=== PATIENT | male | born 1935 | race Caucasian/White ===

== ENCOUNTER 2017-10-06 05:42 | Inpatient (IN) | payer MEDICARE ==
[2017-10-06] VITALS (11 sets, daily range): BP systolic 114–170; BP diastolic 60–84
[~2017-10-06] VITALS: Ht 172.7 cm; Wt 72.4 kg
[~2017-10-06 05:42] MED LIST: KEFLEX500 M1 PO; LISINOPRIL10 MG PO; LORTAB 5/3255 MG PO; SIMVASTATIN20 MG PO; TRAMADOL HCL50 MG PO
--- NOTE | 2017-10-06 05:52 | NUR ---
PT IMMEDIATELY TO RM 13. AMBULATED W/ STEADY GAIT.
--- NOTE | 2017-10-06 05:53 | NUR ---
PT. AMBULATED TO ROOM WITH C/O CONSTIPATION AND NOT HAVING A BM SINCE MONDAY. ABD. LARGE AND DISTENDED WITH DISTANT HYPOACTIVE BOWEL SOUNDS. PT. C/O ABD. PAIN A 6 ON A SCALE OF 1-10.
[2017-10-06 06:33] LABS: HEMATOCRIT 48.2 % (39.0-50.0); HEMOGLOBIN 17.2 g/dl (14.0-18.0); IMMATURE GRANULOCYTES 0.3 % (0.0-1.0); MEAN CORPUSCULAR HGB 32.8 pG CALC (26.0-32.0); MEAN CORPUSCULAR HGB CONC 35.7 g/L CALC (32.0-36.0); NEUT# 7.5 thou/uL (1.82-7.42); RED BLOOD COUNT 5.24 mill/uL (4.70-6.10); RED CELL DISTRI WIDTH 11.8 % (11.5-15.5)
[2017-10-06 06:40] LABS: ALBUMIN 4.8 g/dL (3.2-5.0); ALKALINE PHOSPHATASE 90 u/l (38-126); AMYLASE 78 u/l (30-110); ANION GAP 20 (6-22 (CALC)); BILIRUBIN, TOTAL 1.6 mg/dL (0.0-1.4); BUN 18 mg/dL (8-23); BUN/CREATININE RATIO 19 (12-20 (CALC)); CALCIUM 10.7 mg/dL (8.4-10.2); CARBON DIOXIDE 25 mmol/l (22-30); CHLORIDE 99 mmol/l (95-108); CREATININE 0.9 mg/dL (0.7-1.3); GFR > 60 ML/MIN (>=60 (CALC)); GFR FOR AFR.AMER. > 60 ML/MIN (>=60 (CALC)); GLUCOSE 143 mg/dL (82-115); LIPASE 96 u/l (23-300); POTASSIUM 4.4 mmol/l (3.5-5.1); SGOT/AST 25 u/l (19-48); SGPT/ALT 41 u/l (11-66); SODIUM 139 mmol/l (137-146); TOTAL PROTEIN 7.6 g/dL (6.3-8.2)
--- NOTE | 2017-10-06 06:41 | NUR ---
IVF, IV ANTIEMETIC AND IV ABT. GIVEN PER MD ORDER.
--- NOTE | 2017-10-06 06:45 | NUR ---
IV PAIN MED GIVEN PER MD ORDER.
--- NOTE | 2017-10-06 06:54 | NUR ---
REPORT GIVEN TO FABI GRAHAM.
--- NOTE | 2017-10-06 07:00 | NUR ---
IN TO INTRODUCE SELF TO PATIENT. INFORMED OF NG TUBE PLACEMENT PER MD ORDER. VERBAL UNDERSTANDING FROM PATIENT. CALL LIGHT SAMUEL PINO.
--- NOTE | 2017-10-06 07:35 | NUR ---
NG TUBE PLACED IN RIGHT NARE, X-RAY AT BEDSIDE FOR PORTABLE X-RAY. PATIENT SHOWS NO SIGNS OF RESP DISTRESS.
--- NOTE | 2017-10-06 07:43 | NUR ---
REPORT CALLED TO ROSLYN VELA.
--- NOTE | 2017-10-06 08:00 | NUR ---
PT ON FLOOR WITH ER NURSE MATT. PT ORIENTED TO ROOM AND CALL LIGHT. SAFETY PRECAUTIONS IN PLACE. CALL LIGHT WITHIN REACH. WILL CONTINUE TO MONITOR.
--- NOTE | 2017-10-06 08:10 | NUR ---
PATIENT TRANSPORTED TO MED SURG VIA STRETCHER, NG TUBE CLAMPED FROM SUCTION FOR TRANSPORT. PATIENT IN STABLE CONDITION, TRANSPORTED BY [facility], CARE RELINQUISHED TO ROSLYN VELA.
--- NOTE | 2017-10-06 14:39 | NUR ---
PT OFF FLOOR WITH STAFF VIA WHEELCHAIR FOR CT.
--- NOTE | 2017-10-06 14:59 | NUR ---
PT BACK ON FLOOR WITH STAFF VIA WHEELCHAIR. PT RESTING IN BED. CALL LIGHT WITHIN REACH.
--- NOTE | 2017-10-06 21:40 | NUR ---
PT FROM OR TO ICU BED2, ARRIVED ON STABLE CONDITION, ON STRETCHER ACCOMPANIED BY GLADYS JANE. BED SIDE REPORT RECEIVED. PT ABLE TO SCOOT OVER FROM STRETCHER TO BED WITH MINIMUM ASSISTANCE, ALERT AND ORIENTED X3, APPEARS DROWSY, C/O PAIN IN ABDOMEN AT 7/10, DENIES N/V, HAS NG TUBE TO RIGHT NARE, CONNECTED TO LIS, SOME TEA COLORED DRAINAGED NOTED, VERIFIED PLACEMENT BY AUSCULTATION, LEMUS IN PLACE DRAINING BY GRAVITY, EMPTIED 50 ML OF CLEAR YELLOW URINE AT THIS TIME, LEG STRAP IN PLACE SECURING LEMUS CATH. SLEEVES FOR SCD'S TO BLE, WILL PLACE SCD'S MACHINE, DID NOT HAVE O2 UPON ARRIVAL, O2SATS 88% ON MONITOR, PLACE O2 AT 2LPM UPON ARRIVAL, HAS A 20G LEFT HAND WITH LR INFUSING AT 200ML/HR AND TYLENOL DRIP. APPEARS HEALTHY FREE OF SIGNS OF INFILTRATION, VSS, AFEBRILE, HAS A BINDER SUPPORTING ABDOMEN, APPEAR CDI, SKIN IS WARM/DRY, ACYANOTIC, APPEARS PALE, LUNGS ARE CLEAR ON AUSCULTATION, ABSENT BOWEL SOUNDS, PT DENIES PASSING FLATUS AT THIS TIME, AT BEDSIDE, WILL FOLLOW UP WITH ASSESSMENT AND MEDICATE PER ORDERS.
--- NOTE | 2017-10-06 22:30 | NUR ---
PT RESTING IN BED WITH EYES CLOSED, AROUSES TO VERBAL STIMULI, LEAVING, VSS, AFEBRILE, WILL CONTINUE TO MONITOR.
[2017-10-07] VITALS (21 sets, daily range): BP systolic 112–151; BP diastolic 57–88
--- NOTE | 2017-10-07 00:15 | NUR ---
PIPERACILLIN INFUSING AT THIS TIME, PT DENIES NEED FOR PAIN MEDICATION, DENIES N/V, RESP ARE EVEN AND UNLABORED, VSS, MONITOR SHOWS SR TO ST, HR 59-60, PROVIDED A SWAB TO MOIST MOUTH, NG TUBE DRAINING SMALL AMOUNTS OF JEAN COLORED STOMACH CONTENTS, 200ML ON CANISTER AT THIS TIME, LEMUS DRAINING BY GRAVITY SMALL AMOUNTS OF CLEAR YELLOW URINE, SCD'S REMAIN IN PLACE. ENCOURAGED TO CALL IF NEEDED. VOICES UNDERSTANDING. CALL MORSE AT REACH.
--- NOTE | 2017-10-07 02:18 | NUR ---
MEDICATED PT WITH ZOFRAN AND MORPHINE IV FOR ABD PAIN, RATES IT AT 10/10, GUARDING, FACIAL GRIMACE, AND MOANING NOTED, RESP SLIGHTLY LABORED, INSTRUCTED PT ON BREATHING TECH, PT FOLLOW COMMANDS, AFEBRILE, VSS, SR ON MONITOR, HR 66, BP 145/72, SPO2 98%, PROVIDED ONE WET SWAB TO MOIST MOUTH, EDUCATED ABOUT SPLINTING TECHNIQUES WHEN DEEP BREATHING EXERCISES. ENCOURAGED TO CALL IF NEEDED.
--- NOTE | 2017-10-07 02:55 | NUR ---
PT STATES PAIN IS AT 3/10, NO DISTRESS NOTED NOR GUARDING, CALL MORSE AT REACH.
--- NOTE | 2017-10-07 03:00 | NUR ---
TITRATED DOPAMINE TO 7MCG, BP 83/66, HR 100-114.
--- NOTE | 2017-10-07 03:01 | NUR ---
PT AWAKE, ISP AT BEDSIDE, INSTRUCTED ON HOW TO USE IT AND RATIONALE OF USING IT, PT DEMOSTRATED BACK, NOT ABLE TO HOLD BREATH, STATES "BELLY HURTS"
--- NOTE | 2017-10-07 03:49 | NUR ---
C/O SHARP PAIN IN ABD, STATES "I CAN'T MOVE." PREVIOUSLY MEDICATED WITH MORPHINE AT 0200, RATES PAIN AT 07/06, WILL NOTIFY MD OF PT PAIN. PT DENIES PASSING FLATUS.
--- NOTE | 2017-10-07 04:00 | NUR ---
ANSWERED PT CALL LIGHT, C/O SHARP ABD PAIN, MOANING, GUARDING, FACIAL GRIMACE NOTED, NOTIFIED DR CANDELARIA, MEDICATED WITH MORPHINE IV AT 0200.
--- NOTE | 2017-10-07 04:35 | NUR ---
BABY STROLLER RENTAL CLERK IN PT ROOM DRAWING BLOOD SAMPLES.
[2017-10-07 04:53] LABS: HEMATOCRIT 41.8 % (39.0-50.0); HEMOGLOBIN 14.3 g/dl (14.0-18.0); IMMATURE GRANULOCYTES 0.4 % (0.0-1.0); MEAN CELL VOLUME 96.3 fL CALC (80.0-100.0); MEAN CORPUSCULAR HGB 32.9 pG CALC (26.0-32.0); MEAN CORPUSCULAR HGB CONC 34.2 g/L CALC (32.0-36.0); NEUT# 8.12 thou/uL (1.82-7.42); RED BLOOD COUNT 4.34 mill/uL (4.70-6.10); RED CELL DISTRI WIDTH 11.9 % (11.5-15.5)
[2017-10-07 05:06] LABS: ALKALINE PHOSPHATASE 54 u/l (38-126); ANION GAP 13 (6-22 (CALC)); BILIRUBIN, TOTAL 1.2 mg/dL (0.0-1.4); BUN 18 mg/dL (8-23); BUN/CREATININE RATIO 19 (12-20 (CALC)); CARBON DIOXIDE 27 mmol/l (22-30); CHLORIDE 105 mmol/l (95-108); CREATININE 0.9 mg/dL (0.7-1.3); GFR > 60 ML/MIN (>=60 (CALC)); GFR FOR AFR.AMER. > 60 ML/MIN (>=60 (CALC)); GLUCOSE 126 mg/dL (82-115); POTASSIUM 4.6 mmol/l (3.5-5.1); SGOT/AST 22 u/l (19-48); SGPT/ALT 28 u/l (11-66); SODIUM 141 mmol/l (137-146); TOTAL PROTEIN 5.4 g/dL (6.3-8.2)
[2017-10-07 05:09] LABS: CALCIUM 8.4 mg/dL (8.4-10.2)
--- NOTE | 2017-10-07 05:13 | NUR ---
MEDICATED WITH MORPHINE IV FOR ACHING ABD PAIN AT 10/10. WILL CONTINUE TO REASSESS. CALL MORSE AT REACH. VSS, MOANING, GUARDING, AND FACIAL GRIMACE NOTED.
--- NOTE | 2017-10-07 06:07 | NUR ---
HUNG ZOSYN AT THIS TIME, PT STATES PAIN IS BETTER, BUT WHEN STAYING STILL, NOT WHEN MOVING, GET WORSE AT MINIMUM MOVEMENT, TOTAL URINE OUTPUT FOR SPRINKLING SYSTEM INSTALLER 400ML CLEAR YELLOW URINE, DRAINAGE ON CANISTER AT 200 ML LYNDON, TEA COLORED, SCANT AMOUNT DRAINING AT THIS TIME. PT DENIES PASSING FLATUS. SOME FACIAL GRIMACE NOTED. NO MOANING OR GUARDING AT THIS TIME.
--- NOTE | 2017-10-07 07:25 | NUR ---
PT ALERT AND ORIENTED, MOANING AND COMPLAINING OF SHARP PAIN IN ABD, AM ASSESSMENT COMPLETED SEE INTERVENTIONS, SKIN WARM AND DRY, ABD INCISION DRESSING CLEAN DRY AND INTACT WITH MINIMAL SERO/SANG DRANG NOTED, ABD BINDER IN PLACE AND SECURE, NG INTACT TO LIS, BOWEL SOUNDS ABSENT, NO S/S OF INFECTION NOTED, LUNG CLEAR O2 ON AT 2L VIA NC, NO SHORTNESS OF BREATH OR DISTRESS NOTED, INCENTIVE SPIROMETER AT BEDSIDE AND FREQUENT USE ENCOURAGED PT CRIES OUT "I CAN'T DO IT RIGHT NOW, I'M IN TO MUCH PAIN", VS STABLE PT AFEBRILE, SCD'S ON BLE, IVF INFUSING AT PRESCRIBED RATE, SAFETY MEASURES REINFORCED, EDUCATED REGARDING THE IMPORTANCE OF OOB ACTOVOTY AND AMBULATION WITH REGARDS TO POST OP HEALING AND OVERALL WELL BEING, PT VERBALIZES UNDERSTANDING AND STATES ONCE HIS PAIN IS BETTER HE KNOWS HE NEEDS TO GET OOB, WILL CONTACT MD REGARDING PAIN CONTROL. CALL MORSE WITHIN REACH
--- NOTE | 2017-10-07 08:00 | NUR ---
CONTACTED AND REGARDING PAIN CONTROL, ADVERTISING AGENCY MANAGER ORDERED, WILL INITIATE PRESCRIBED, PT EDUCATED REGARDING PROCESS AND PT STATES "THEY HAVE DONE THAT THE LAST 2 TIMES, I DON'T KNOW WHY I DIDN;T THINK TO MENTION IT" CALL MORSE WITHIN REACH, EDUCATED REGARDING ADVERTISING AGENCY MANAGER USAGE ETC...VERBALIZES UNDERSTANDING.
--- NOTE | 2017-10-07 08:35 | NUR ---
LINNEA BATH STEWARD/STEWARDESS INTIATED, PT EDUCATED REGARDING BATH STEWARD/STEWARDESS USAGE WITH RETURN DEMONSTRATION, CALL MORSE WITHIN REACH
--- NOTE | 2017-10-07 08:55 | NUR ---
RADIOLOGY AT BEDSIDE FOR PORTABLE XRAY ORDERED, PT STATES PAIN BETTER BUT WORSENS WITH MOVEMENT, EDUCATED REGARDING PAIN CONTROL VS PAIN RELIEF, REMINDED THAT PAIN WILL NTO BE GONE COMPLETELY POST OPERATIVELY BUT SHOULD BE TOLERABLE WITH SMELTER LINER, VERBALIZES UNDERSTANDING, CALL MORSE WITHIN REACH, DEMONSTRATES SMELTER LINER USAGE WILL CONTINUE TO MONTIOR.
--- NOTE | 2017-10-07 10:00 | NUR ---
NPO STATUS MAINTAINED, REPOSITIONS SELF FOR COMFORT, IS USAGE ENCOURAGED, CALL MORSE WITHIN REACH.
--- NOTE | 2017-10-07 10:25 | NUR ---
AND INTO SEE PATIENT, PLAN OF CARE DISCUSSED
--- NOTE | 2017-10-07 12:06 | NUR ---
PT RESTING IN BED, OFFERS NO NEW COMPLAINTS, CURRENTLY AT BEDSIDE, PAIN WELL CONTROLLED WITH MORPHINE NETWORKER, WILL CONTINUE TO MONITOR.
--- NOTE | 2017-10-07 12:49 | NUR ---
PT RESTING AWARE OF PLAN TO AMBULATE AT 1330 (PER HIS REQUEST), REMAINS AT BEDSIDE, TOLERATING ICE CHIPS WITHOUT INCIDENT, CALL MORSE WITHIN REACH
--- NOTE | 2017-10-07 14:00 | NUR ---
LEMUS CATHTER REMOVED INTACT, W/O INCIDENT, PT TOLERATED WELL, URINAL PLACED WITHIN REACH, AND PT EDUCATED REGARDING THE IMPORTANCE OF MEASURING FIRST POST LEMUS VOIDS, VERBALIZES UNDERSTANDING, CALL MORSE WITHIN REACH
--- NOTE | 2017-10-07 14:07 | NUR ---
PT AMBULATED AROUND NURSES STATION AND TOLERATED WELL, BACK TO [place] SITTING UP IN RECLINER, SPOUSE AT BEDSIDE, IS USAGE DEMONSTRATED, REMINDED TO USE HOURLY WPOUSE VERBALIZES SHE WILL HELP REMIND HIM.
--- NOTE | 2017-10-07 16:05 | NUR ---
TOLERATING SITTING UP IN CHAIR, REMAINS AT BEDSIDE, URINAL WITHIN REACH, NO VOID SINCE LEMUS REMOVAL EARLIER, CALL MORSE WITHIN REACH
--- NOTE | 2017-10-07 16:50 | NUR ---
PT AMBULATED AROUND NURSE STATION WITH STAND BY ASSIST, VOIDED 50 ML CELAR YELLOW URINE, ASSISTED BACK TO BED AND SCD'S BACK INPLCE, NG REMAINS TO LIS WITH MINIMAL OUTPUT NOTED THIS SHIFT, CALL MORSE WITHIN REACH, WILL CONTINUE TO MONITOR.
--- NOTE | 2017-10-07 17:20 | NUR ---
GONE AT THIS TIME, RESTING, CONTINUES TO TOLERATE MORPHINE ENTRANCE GUARD WITH GOOD RELIEF, CALL MORSE WITHIN REACH
--- NOTE | 2017-10-07 19:35 | NUR ---
BEDSIDE REPORT RECEIVED FROM GLADYS CRAIG. PT RESTING IN BED WITH HEAD ELEVATED 30 DEGREES. NG TUBE IN PLACE AT LIS. PT STATES THAT PAIN IS MANAGED WITH MORPHINE PRODUCTION UTILITY WORKER. RESPIRATIONS EVEN AND UNLABORED. ABDOMINAL DRESSING WITH MINIMAL SEROSANGUINOUS DRAININAGE AND ABDOMINAL BINDER IN PLACE. NO BOWEL SOUNDS CURRENTLY. VOIDED 175ML OF CLEAR YELLOW URINE AT THIS TIME. PLAN OF CARE DISCUSSED. PT ENCOURAGED TO VERBALIZE CONCERNS. STATED UNDERSTANDING. SAFETY MEASURES IN PLACE. CALL LIGHT SYSTEM REVIEWED AND IN REACH.
--- NOTE | 2017-10-07 21:58 | NUR ---
PT UP TO CHAIR FOR HYGEINE AND LINEN CHANGE. TOLERATED WELL. ASSISTED BACK TO BED AND SCD'S REPLACED. IV FLUIDS INFUSING WITHOUT DIFFICUTLY. NO FURTHER REQUESTS AT THIS TIME. CALL LIGHT WITHIN REACH.
[2017-10-08] VITALS (8 sets, daily range): BP systolic 125–166; BP diastolic 65–91
--- NOTE | 2017-10-08 00:03 | NUR ---
TITRATED OXYGEN TO 1L VIA NC. OXYGEN SATURATION AT 95%. PT OFFERS NO COMPLAINTS OR REQUESTS AT THIS TIME.
--- NOTE | 2017-10-08 02:09 | NUR ---
PT ASLEEP AT THIS TIME. USING URINAL AT BEDSIDE TO VOID. USING INCENTIVE SPIROMETER WHILE AWAKE. USES CALL LIGHT NEEDED.
--- NOTE | 2017-10-08 04:16 | NUR ---
PT USING CERTIFIED ACTIVITIES DIRECTOR PUMP CONSISTENTLY. REMAINS ALERT WHEN AWAKE. RESPIRATIONS EVEN AND UNLABORED. STILL NO BOWEL SOUNDS. DRESSING HAS NO ADDITIONAL DRAINAGE; STILL MINIMAL AMOUNT OF SEROSANGINOUS DRAINAGE. NG TUBE REMIANS IN PLACE TO RIGHT NARE AT LIS; NO DRAINAGE THIS SHIFT SO FAR. PT REMAINS PLEASANT WITH NO COMPLAINTS.
[2017-10-08 05:15] LABS: HEMATOCRIT 41.5 % (39.0-50.0); HEMOGLOBIN 14.1 g/dl (14.0-18.0); IMMATURE GRANULOCYTES 0.1 % (0.0-1.0); MEAN CELL VOLUME 96.7 fL CALC (80.0-100.0); MEAN CORPUSCULAR HGB 32.9 pG CALC (26.0-32.0); NEUT# 4.89 thou/uL (1.82-7.42); RED BLOOD COUNT 4.29 mill/uL (4.70-6.10); RED CELL DISTRI WIDTH 12.1 % (11.5-15.5)
[2017-10-08 05:28] LABS: ANION GAP 12 (6-22 (CALC)); BUN 9 mg/dL (8-23); BUN/CREATININE RATIO 9 (12-20 (CALC)); CALCIUM 8.3 mg/dL (8.4-10.2); CARBON DIOXIDE 28 mmol/l (22-30); CHLORIDE 102 mmol/l (95-108); CREATININE 0.9 mg/dL (0.7-1.3); GFR > 60 ML/MIN (>=60 (CALC)); GFR FOR AFR.AMER. > 60 ML/MIN (>=60 (CALC)); GLUCOSE 83 mg/dL (82-115); SODIUM 138 mmol/l (137-146)
--- NOTE | 2017-10-08 06:24 | NUR ---
PT UP TO AMBULATED AROUND UNIT. TOLERATED WELL. REMAINS AFEBRILE.
--- NOTE | 2017-10-08 08:16 | NUR ---
PT AROUSED EASILY TO VERBAL STIMULI; A/O X3; STATES PAIN 2/10; MORPHINE PROCEDURAL NURSE INFUSING WITHOUT DIFFICULTY; NG TO RT NARE WITH SCANT AMOUNT OF GREEN DRAINAGE NOTED; O2 1L VIA NC; MIDLINE ABD INCISION WITH SMALL AMOUNT OF OLD SEROUSAGINOUS DRAINAGE NOTED; ABD BINDER IN PLACE; PT VOIDS USING URINAL WITHOUT DIFFICULTY; SCD IN PLACE; PT GOOD USE OF IS AT 1500 X10; ENCOURAGE USE OF CALL LIGHT IF ANY ASSISTANCE IS NEEDED; WILL CONTINUE TO MONITOR.
--- NOTE | 2017-10-08 09:48 | NUR ---
DR. CANDELARIA IN TO SEE PT; PLAN OF CARE DISCUSSED
--- NOTE | 2017-10-08 11:16 | NUR ---
PT AMBULATORY IN THE HALLS; PT IN RECLINER WITH FEET ELEVATED; PAIN LEVEL 1/10; MORPHINE PELOTA MAKER EFFECTIVE; CALL MORSE WITHIN REACH; WILL CONTINUE TO MONITOR.
--- NOTE | 2017-10-08 13:01 | NUR ---
PT IN RECLINER; OFFERS NO COMPLAINTS AT THIS TIME; CALL MORSE WITHIN REACH; WILL CONTINUE TO MONITOR.
--- NOTE | 2017-10-08 14:05 | NUR ---
PT TO MS RROM 264 VIA WC ACCOMPANIED BY STAFF; REPORT GIVEN TO ROSLYN FARRAR
--- NOTE | 2017-10-08 14:26 | NUR ---
PT ARRIVED FROM ICU VIA WC ACCOMPANIED BY STAFF, IV SITE AND NGT IN PLACE,. CONTINUE TO OBSERVE AND MONITOR.
--- NOTE | 2017-10-08 16:00 | NUR ---
PT IS AMBULATING IN THE HOUGH WITH NO DISTRESS NOTED. IV SITE IS FREE FROM REDNESS OR EDEMA. FAMILY HAS BEEN IN THE ROOM. CONTINUE TO OBSERVE AND MONITOR
--- NOTE | 2017-10-08 19:45 | NUR ---
PT SITTING UP IN BED WATCHING TV. PT IS ALERT AND ORIENTED X3. PERRLA. RESP ARE EVEN AND UNLABORED. LUNGS ARE CLEAR. TELE IN PLACE. HR REGULAR. PULSES PALPABLE THROUGHOUT. NO EDEMA NOTED. NO BOWEL SOUNDS NOTED. MIDLINE INCISION. DRESSING C/D/I. ABDOMINAL BINDER IN PLACE. NG DRAINING GREEN BILE AT LIS. PT REPORTS THAT HE IS NOT PASSING FLATUS AT THIS TIME. SCD IN PLACE. #20 LEFT HAND WITH LR @KVO. FARMWORKER DAIRY INFUSING. NO REDNESS OR EDEMA AT IV SITE. PT REPORTS USING INCENTIVE SPRIMOTER. DENIES PAIN AT THIS TIME. WILL CONTINUE OT MONITOR
--- NOTE | 2017-10-08 22:00 | NUR ---
LENS MARKER PUMP JUAN'Valerie.
--- NOTE | 2017-10-09 | NUR ---
PT RESTING IN BED WITH EYES CLOSED. AROUSES TO VERBAL STIMULI. RESP ARE EVEN AND UNLABORED. NO CHANGE IN PT STATUS. WILL CONTINUE TO MONITOR
[2017-10-09 00:37] VITALS: BP 142/80
[2017-10-09 03:52] VITALS: BP 154/86
--- NOTE | 2017-10-09 04:44 | NUR ---
PT RESTING IN BED WITH EYES CLOSED. AROUSES TO VERBAL STIMULI. RESP ARE EVEN AND UNLABORED. WILL CONTINUE TO MONITOR
[2017-10-09 06:05] LABS: HEMATOCRIT 41.9 % (39.0-50.0); HEMOGLOBIN 14.2 g/dl (14.0-18.0); IMMATURE GRANULOCYTES 0.3 % (0.0-1.0); MEAN CELL VOLUME 95.9 fL CALC (80.0-100.0); MEAN CORPUSCULAR HGB 32.5 pG CALC (26.0-32.0); MEAN CORPUSCULAR HGB CONC 33.9 g/L CALC (32.0-36.0); NEUT# 4.92 thou/uL (1.82-7.42); RED BLOOD COUNT 4.37 mill/uL (4.70-6.10); RED CELL DISTRI WIDTH 11.8 % (11.5-15.5)
[2017-10-09 06:13] LABS: ANION GAP 17 (6-22 (CALC)); BUN 9 mg/dL (8-23); BUN/CREATININE RATIO 11 (12-20 (CALC)); CALCIUM 8.3 mg/dL (8.4-10.2); CARBON DIOXIDE 22 mmol/l (22-30); CHLORIDE 100 mmol/l (95-108); CREATININE 0.8 mg/dL (0.7-1.3); GFR > 60 ML/MIN (>=60 (CALC)); GFR FOR AFR.AMER. > 60 ML/MIN (>=60 (CALC)); GLUCOSE 69 mg/dL (82-115); SODIUM 135 mmol/l (137-146)
--- NOTE | 2017-10-09 06:23 | NUR ---
PT UP TO WALK THIS AM. MINIMAL ASSISTANCE NEEDED.
--- NOTE | 2017-10-09 07:00 | NUR ---
REPORT RECIEVED FROM GLADYS MTZ. PT AWAKE ON ENTRY RESTING IN SUPINE POSITION. NO COMPLAINTS OF PAIN FROM PT AT THIS TIME. IV SIGHT PATENT, NO REDNESS OR INFLAMMATION. SAFETY PRECAUTIONS REINFORCED. CALL LIGHT WITHIN REACH. WILL CONTINUE TO MONITOR.
[2017-10-09 11:25] VITALS: BP 169/95
[2017-10-09 15:10] VITALS: BP 145/88
--- NOTE | 2017-10-09 15:41 | NUR ---
PT AMBULATING IN HALLWAY WITH . RESP EVEN AND UNLABORED. NO COMPLAINTS OF PAIN. WILL CONTINUE TO MONITOR.
--- NOTE | 2017-10-09 16:43 | NUR ---
SPOKE TO PT DURING ROUNDS REGARDING SIDE-EFFECTS OF MEDICATIONS INCLUDING N/V/D, DIFFICULTY BREATHING, AND CONSTIPATION. PT SEEMED WELL AND DID NOT HAVE ANY QUESTIONS ABOUT HIS MEDICATIONS.
[2017-10-09 19:00] VITALS: BP 150/87
--- NOTE | 2017-10-09 19:00 | NUR ---
RECEIVED CHANGE OF SHIFT REPORT FROM ROSLYN VELA. PATIENT LYING IN BED AND APPEARS NOT TO BE IN ANY APPARENT ACUTE DISTRESS OR DISCOMFORT. WILL CONTINUE TO MONITOR.
--- NOTE | 2017-10-09 19:23 | NUR ---
REPORT GIVEN TO GLADYS CINTRON. NO CHANGE IN PT CONDITION. FAMILY AT BEDSIDE.
--- NOTE | 2017-10-10 | NUR ---
PATIENT RESTING QUIETLY AT THIS TIME WITH EYES CLOSED. NO APPARENT ACUTE DISTRESS NOTED. PATIENT AWOKE SPONTANEOUSLY ON ENTERING THE ROOM. DENIES ANY DISCOMFORT.
[2017-10-10 00:29] VITALS: BP 136/81
--- NOTE | 2017-10-10 04:00 | NUR ---
PATIENT APPEARS TO BE ASLEEP. AWOKE SPONTANEOUSLY ON ENTERING THE ROOM. NO APPARENT ACUTE CHANGES NOTED IN PATIENT'S CONDITION.
[2017-10-10 05:24] VITALS: BP 123/72
--- NOTE | 2017-10-10 07:00 | NUR ---
REPORT RECIEVED FROM GLADYS CINTRON. PT RESTING IN BED. NO COMPLAINTS OF PAIN. RESP EVEN AND UNLABORED. TELE IN PLACE. IV PATENT, NO REDNESS OR INFLAMATION NOTED. SAFETY PRECAUTIONS REINFORCED. CALL LIGHT WITHIN REACH. WILL CONTINUE TO MONITOR.
[2017-10-10 10:55] VITALS: BP 123/77
--- NOTE | 2017-10-10 15:22 | NUR ---
PT AMBULATING IN HALLWAY WITH .
[2017-10-10 15:37] VITALS: BP 131/79
[2017-10-10 18:48] VITALS: BP 142/94
--- NOTE | 2017-10-10 19:00 | NUR ---
REPORT GIVEN TO GLADYS CINTRON. NO ACUTE CHANGES IN PT CONDITION, CALL LIGHT WITH IN REACH.
--- NOTE | 2017-10-10 19:00 | NUR ---
RECEIVED CHANGE OF SHIFT REPORT FROM ROSLYN VELA. PATIENT LYING IN BED AND APPEARS NOT TO BE IN ANY APPARENT ACUTE DISTRESS. REPORTS UNRELIEVED PAIN. PT LOST IV ACCESS. AWAITING PHARMACY TO PROFILE ORDER FOR MORPHINE IM. WILL CONTINUE TO MONITOR.
--- NOTE | 2017-10-11 | NUR ---
PATIENT RESTING QUIETLY AT THIS TIME.
[2017-10-11 00:02] VITALS: BP 131/86
--- NOTE | 2017-10-11 04:00 | NUR ---
PATIENT REPORTS PASSING GAS. PT STATED "IT FELT SO GOOD"
[2017-10-11 04:35] VITALS: BP 127/80
--- NOTE | 2017-10-11 05:00 | NUR ---
NO APPARENT ACUTE CHANGES NOTED IN PT'S CONDITION.
[2017-10-11 06:41] LABS: HEMOGLOBIN 14.9 g/dl (14.0-18.0); IMMATURE GRANULOCYTES 0.3 % (0.0-1.0); MEAN CELL VOLUME 94.7 fL CALC (80.0-100.0); MEAN CORPUSCULAR HGB 32.8 pG CALC (26.0-32.0); MEAN CORPUSCULAR HGB CONC 34.7 g/L CALC (32.0-36.0); NEUT# 4.25 thou/uL (1.82-7.42); RED BLOOD COUNT 4.54 mill/uL (4.70-6.10); RED CELL DISTRI WIDTH 11.8 % (11.5-15.5)
[2017-10-11 06:55] LABS: ANION GAP 20 (6-22 (CALC)); BUN 7 mg/dL (8-23); BUN/CREATININE RATIO 8 (12-20 (CALC)); CALCIUM 8.4 mg/dL (8.4-10.2); CARBON DIOXIDE 18 mmol/l (22-30); CHLORIDE 105 mmol/l (95-108); CREATININE 0.8 mg/dL (0.7-1.3); GFR > 60 ML/MIN (>=60 (CALC)); GFR FOR AFR.AMER. > 60 ML/MIN (>=60 (CALC)); GLUCOSE 65 mg/dL (82-115); POTASSIUM 4.2 mmol/l (3.5-5.1); SODIUM 138 mmol/l (137-146)
--- NOTE | 2017-10-11 07:14 | NUR ---
REPORT RECEIVED FROM GLADYS CINTRON. PT SUPINE IN BED. DENIES PAIN. REPORTING OF CONCERNS ENCOURAGED. PT REPORTS PASSING GAS. STATES "I CAN FEEL IT WAKING UP IN THERE." PLAN OF CARE DISCUSSED. PT REQUESTING NGT REMOVE RADHA. CALL LIGHT REVIEWED AND IN REACH. PT STATES UNDERSTANDING.
[2017-10-11 07:42] VITALS: BP 130/85
--- NOTE | 2017-10-11 10:52 | NUR ---
MIDLINE ABDOMINAL DRESSING CHANGED PER KINA NOONAN. INCISION FREE FROM REDNESS, DRAINAGE AND SWELLING. NO S/S INFECTION. DRY TELFA AND TRANSPARENT APPLIED. ABDOMINAL BINDER IN PLACE. PT REPORTS TOLERANCE OF CLEAR LIQUID DIET. DIET PROGRESSED TO FULL LIQUID PER KINA NOONAN. WILL CONTINUE TO MONITOR.
[2017-10-11 11:15] VITALS: BP 124/78
--- NOTE | 2017-10-11 11:31 | NUR ---
PT AMBULATING IN HALLWAYS AT THIS TIME. PT TOLERATING ACTIVITY WELL.
--- NOTE | 2017-10-11 12:49 | NUR ---
PT REPORTS SMALL BROWN LOOSE STOOL.
[2017-10-11 15:14] VITALS: BP 124/81
--- NOTE | 2017-10-11 16:38 | NUR ---
PT SLEEPING IN CHAIR AT BEDSIDE. CALL LIGHT WITHIN REACH.
--- NOTE | 2017-10-11 19:00 | NUR ---
REEIVED CHANGE OF SHIFT REPORT FROM GLADYS WOODY. PATIENT LYING IN BED AND APPEARS NOT TO BE ON ANY APPARENT ACUTE DISTRESS OR DISCOMFORT. WILL CONTINUE TO MONITOR.
[2017-10-11 19:17] VITALS: BP 124/79
--- NOTE | 2017-10-12 | NUR ---
PATIENT RESTING QUIETLY IN BED WITH EYES CLOSED AND APPEARS TO BE ASLEEP. NO APPARENT ACUTE DISTRESS OR DISCOMFORT NOTED. WILL CONTINUE TO MONITOR.
[2017-10-12 00:12] VITALS: BP 120/65
[2017-10-12 04:00] VITALS: BP 156/85
--- NOTE | 2017-10-12 04:00 | NUR ---
NO APPARENT ACUTE CHANGES NOTED IN PATIENT'S CONDITION.
[2017-10-12 07:38] VITALS: BP 160/85
--- NOTE | 2017-10-12 08:23 | NUR ---
PT MEDICATED FOR C/O ABD PAIN 03/06; PT AMBULATORY IN THE ROOM; TOLERATING DIET WELL; TELE MONITOR IN PLACE; CALL MORSE WITHIN REACH; WILL CONTINUE TO MONITOR.
[2017-10-12 10:37] LABS: URINE BILIRUBIN - DIPSTICK NEGATIVE (NEGATIVE); URINE COLOR YELLOW; URINE GLUCOSE - DIPSTICK NEGATIVE (NEGATIVE); URINE KETONE >=80 mg/dL (NEGATIVE); URINE LEUK ESTERASE NEGATIVE (NEGATIVE); URINE NITRITE - DIPSTICK NEGATIVE (Negative); URINE PH 5.5 (4.5-8.0); URINE PROTEIN - DIPSTICK NEGATIVE (NEG-TRACE); URINE UROBILINOGEN - DIPSTICK 0.2 E.U./dL (0.2)
[2017-10-12 10:39] LABS: URINE CLARITY CLEAR
[2017-10-12 10:40] LABS: URINE BLOOD DIPSTICK TRACE (NEGATIVE)
[2017-10-12] MEDS ORDERED: OXYCODONE/ACETA1 TA8 PO (11:14)
[2017-10-12 11:19] VITALS: BP 135/85
[2017-10-12] MEDS ORDERED: COLACE100 MG PO (11:21)
[2017-10-12] MEDS ORDERED: MIRALAX3350 N1 PO (11:21)
--- NOTE | 2017-10-12 12:55 | NUR ---
Discharge instructions given. Patient verbalizes understanding of same. Discharged in stable condition via Wheelchair to Home with family. All belongings sent with pt.
== END 2017-10-12 12:51 | disposition home or self-care (01) | DRG 330 ==
LOC: ED 05:42 → ED-I 06:30 → ED 06:56 → MS2 06:57 → ICU 11:31 → MS2 11:31 → ICU 21:32 → MS2 10-08 13:55
PROVIDERS: Emergency Medicine; Nurse Practitioner Family; ADMIT Internal Medicine; ATTEND Internal Medicine
PROC: 0DS80ZZ Reposition Small Intestine, Open Approach (ICD-10-PCS; principal; 2017-10-06)
DX: K56.2 Volvulus (principal); K91.89 Other postprocedural complications and disorders of digestive system; K56.7 Ileus, unspecified; E78.5 Hyperlipidemia, unspecified; I10 Essential (primary) hypertension; E87.6 Hypokalemia; Y83.8 Other surgical procedures as the cause of abnormal reaction of the patient, or of later complication, without mention of misadventure at the time of the procedure; Z90.49 Acquired absence of other specified parts of digestive tract; Z86.03 Personal history of neoplasm of uncertain behavior
CPT/HCPCS: J1650; J2060; J2710